=== PATIENT | male | born 1950 | race Caucasian/White ===

== ENCOUNTER 2019-03-30 14:18 | Emergency (ER) | payer MEDICARE, OTHER ==
[2019-03-30 15:11] LABS: BASOPHILS # (AUTO) 0.1 10^3/uL (0.0-0.1); BASOPHILS % (AUTO) 0.7 %; EOSINOPHILS # (AUTO) 0.2 10^3/uL (0.0-0.7); EOSINOPHILS % (AUTO) 2.2 %; LYMPHOCYTES # (AUTO) 1.1 10^3/uL (1.5-3.5); LYMPHOCYTES % (AUTO) 12.1 %; MEAN CORPUSCULAR HEMOGLOBIN 29.5 pg (27.0-31.0); MEAN CORPUSCULAR HGB CONC 33.7 g/dL (32.0-36.0); MEAN CORPUSCULAR VOLUME 87.4 fL (80.0-94.0); MEAN PLATELET VOLUME 7.4 fL (7.4-11.4); MONOCYTES # (AUTO) 1.3 10^3/uL (0.0-1.0); MONOCYTES % (AUTO) 14.8 %; NEUTROPHILS # (AUTO) 6.1 10^3/uL (1.5-6.6); NEUTROPHILS % (AUTO) 70.2 %; PLT - PLATELET COUNT 305 10^3/uL (130-450); RED BLOOD COUNT 4.42 10^6/uL (4.70-6.10); WHITE BLOOD COUNT 8.7 x10^3/uL (4.8-10.8)
--- NOTE | 2019-03-30 15:11 | XRAY Report ---
Reason: pain Procedure Date: 03/30/2019 Accession Number: [id number] / [id number] Procedure: XR - Chest 2 View X-Ray CPT Code: 34618 FULL RESULT: EXAM: CHEST RADIOGRAPHY EXAM DATE: 03/30/2019 02:51 PM. CLINICAL HISTORY: Chest pain. Shortness of breath. COMPARISON: None available. TECHNIQUE: 2 views. FINDINGS: Heart size is normal. Calcified plaques in the thoracic aorta. No consolidation, pleural effusion, or pneumothorax. IMPRESSION: No acute cardiopulmonary findings. [facility]
[2019-03-30 15:24] LABS: ALBUMIN 4.1 g/dL (3.2-5.5); ALBUMIN/GLOBULIN RATIO 1.5 (1.0-2.2); BILIRUBIN,TOTAL 1.4 mg/dL (0.2-1.0); CALCIUM 9.3 mg/dL (8.5-10.3); CREATININE 0.8 mg/dL (0.6-1.2); TOTAL PROTEIN 6.9 g/dL (6.7-8.2)
--- NOTE | 2019-03-30 18:23 | ED Physician Documentation ---
PD HPI DYSPNEA - Stated complaint Stated Complaint: SOA - Chief complaint Chief Complaint: Cardiac - History obtained from History obtained from: Patient - History of Present Illness Timing - onset: How many weeks ago (has noted dyspnea on exertion for month or two. The past few days has noted some jaw/upper chest discomfort when he bends over or lying flat. Has also noted thigh cramping and leg weakness for several weeks, and saw PMD about that recently, with abd U/s done to eval vascular.) Timing - onset during: Exertion (feels fatigue and dyspnea with activity. Just few days or so of chest/jaw tightness, but not exertional, more positional. No pain with eating.) Timing - duration: Weeks Timing - details: Gradual onset, Waxing and waning Inciting event(s): No: URI Improved by: Rest, Sitting up Worsened by: Laying flat, Other (bending over, feels discomfort into jaw/upper chest area.) Associated symptoms: Chest pain / discomfort (tightness feeling.). No: Fever, Cough, Wheezing Similar symptoms before: No diagnosis (has had some dyspnea and chest discomfort in the past, with normal nuclear stress test about 5-6 years ago, estimated by him/.) Recently seen: Clinic (discussed leg weakness and cramps with PMD, who did abd U/S to evaluate for AAA/vascular, and this was normal, per patient.) Review of Systems Constitutional: reports: Myalgias (in legs/thighs mostly), Fatigue. denies: Fever, Chills Nose: denies: Rhinorrhea / runny nose, Congestion Throat: denies: Sore throat Cardiac: denies: Palpitations, Pedal edema, Calf pain Respiratory: reports: Dyspnea. denies: Cough, Wheezing GI: denies: Abdominal Pain, Nausea, Vomiting, Constipation, Bloody / black stool Skin: denies: Rash, Lesions Musculoskeletal: denies: Extremity swelling Neurologic: denies: Numbness, Near syncope, Altered mental status, Headache PD PAST MEDICAL HISTORY - Past Medical History Past Medical History: Yes Cardiovascular: High cholesterol Neuro: Tremors Psych: Post traumatic stress disorder - Past Surgical History Past Surgical History: Yes - Allergies Allergies/Adverse Reactions: Allergies Allergy/AdvReac Type Severity Reaction Status Date / Time amoxicillin Allergy Anaphylaxis Verified 03/30/19 19:16 doxycycline Allergy Anaphylaxis Verified 03/30/19 19:16 - Social History Does the pt smoke?: Yes Smoking Status: Former smoker Does the pt drink ETOH?: Yes - Immunizations Immunizations are current?: Yes PD ED PE NORMAL - Vitals Vital signs reviewed: Yes - General General: Alert and oriented X 3, No acute distress, Well developed/nourished - HEENT HEENT: Pharynx benign - Neck Neck: Supple, no meningeal sign, No adenopathy - Cardiac Cardiac: RRR, No murmur - Respiratory Respiratory: Clear bilaterally - Abdomen Abdomen: Normal bowel sounds, Soft, Non tender, Non distended - Derm Derm: Normal color, Warm and dry, No rash - Extremities Extremities: No tenderness to palpate, Normal ROM s pain, No edema, No calf tenderness / cord - Neuro Neuro: Alert and oriented X 3, No motor deficit, Normal speech Eye Opening: Spontaneous Motor: Obeys Commands Verbal: Oriented GCS Score: 15 Results - Vitals Vitals: Vital Signs - 24 hr 03/30/19 03/30/19 03/30/19 14:31 17:30 19:00 Temperature 36.3 C L Heart Rate 66 70 69 Respiratory 18 20 21 Rate Blood Pressure 136/74 H 138/78 H 144/85 H O2 Saturation 100 99 99 03/30/19 03/30/19 19:30 20:24 Temperature Heart Rate 68 73 Respiratory 17 20 Rate Blood Pressure 147/77 H 157/84 H O2 Saturation 100 100 Oxygen O2 Source Room air - EKG (time done) 14:32 Rate: Rate (enter#) (68) Rhythm: NSR [place]: Normal Intervals: Normal ID QRS: Normal Ischemia: Normal ST segments. No: ST elevation c/w ischemia, ST depression - Labs Labs: Laboratory Tests 03/30/19 03/30/19 03/30/19 15:00 15:00 15:00 WBC 8.7 RBC 4.42 L Hgb 13.0 L Hct 38.6 L MCV 87.4 MCH 29.5 MCHC 33.7 RDW 14.0 Plt Count 305 MPV 7.4 Neut # (Auto) 6.1 Lymph # (Auto) 1.1 L [place] # (Auto) 1.3 H Eos # (Auto) 0.2 Baso # (Auto) 0.1 Absolute Nucleated RBC 0.00 Nucleated RBC % 0.0 Sodium 142 Potassium 4.3 Chloride 107 Carbon Dioxide 26 Anion Gap 9.0 BUN 15 Creatinine 0.8 Estimated GFR (MDRD) 96 Glucose 96 Calcium 9.3 Total Bilirubin 1.4 H AST 17 ALT 16 Alkaline Phosphatase 74 Troponin I < 0.04 Total Protein 6.9 Albumin 4.1 Globulin 2.8 Albumin/Globulin Ratio 1.5 Lipase 37 - Rads (name of study) chest xray Radiology: Prelim report reviewed (no acute process), EMP read contemporaneously, See rad report PD MEDICAL DECISION MAKING - ED course Complexity details: reviewed results, re-evaluated patient (consider anginal equivalent and discussed following up with PMD for consideration stress testing. He says it has been 5-6 years maybe since prior stress test, which was normal. Regarding his leg cramps/weakness, we verbally discussed stopping the statins for a month to see if that improves the symptoms. ), considered differential (consdier angina, reflux, lung process, OR. For legs, consider effect of statins. ), d/w patient Departure - Departure Disposition: 01 Home, Self Care Clinical Impression: Dyspnea Qualifiers: Dyspnea type: dyspnea on exertion Qualified Code(s): R06.09 - Other forms of dyspnea Chest pain Qualifiers: Chest pain type: unspecified Qualified Code(s): R07.9 - Chest pain, unspecified Condition: Stable Record reviewed to determine appropriate education?: Yes Instructions: ED Dyspnea Shortness of Breath Follow-Up: Rj Tee MD [Primary Care Provider] - Comments: Stay well-hydrated. Continue your Pepcid once or twice daily for the next week or 2. Some of this sounds like esophagitis. You could use some Maalox or Mylanta as well. Tylenol if needed for pains. There is no signs of heart attack or heart failure or pneumonia based on your EKG and x-ray. Follow-up with your primary care however as the shortness of breath that you have had over time could represent some heart disease and would be fully excluded with like a stress test or such. That would have to be arranged through your primary care. (Added after discharge: we verbally discussed stopping the statin med for a month, to see if that would help his recent thigh muscle cramps and feeling of leg weakness). Discharge Date/Time: 03/30/19 20:32
[2019-03-30] MEDS ORDERED: LIDOCAINE VISCOUS 2% 15 ML UDC MM STA (18:57)
[2019-03-30] MEDS ORDERED: MAG HYDROX/AL HYDROX/SIMETH 30 ML UDC PO STA (18:57)
[2019-03-30] MEDS ORDERED: ACETAMINOPHEN 325 MG TABLET PO STA (20:23)
[2019-03-30] MEDS ORDERED: traMADol 50 MG TABLET PO STA (20:23)
[2019-03-30 20:24] VITALS: BP 157/84
== END 2019-03-30 20:32 | disposition home or self-care (01) ==
LOC: ED 14:18
DX: R07.9 Chest pain, unspecified (principal); R06.09 Other forms of dyspnea; R25.2 Cramp and spasm; R29.898 Other symptoms and signs involving the musculoskeletal system; M79.18 Myalgia, other site; Z87.891 Personal history of nicotine dependence
CPT/HCPCS: 36415; 71046; 80053; 83690; 84484; 85025; 93005; 99283; 99284; A9270

== ENCOUNTER 2019-05-10 09:37 | Outpatient (CLI) | payer MEDICARE, OTHER ==
[2019-05-10] MEDS ORDERED: IOVERSOL 320 100 ML VIAL IVP ONE (10:18)
--- NOTE | 2019-05-11 06:08 | CT Report ---
Reason: CHEST PAIN, SOBOE, PLEURAL EFFUSION, LEFT Procedure Date: 05/10/2019 Accession Number: [id number] / [id number] Procedure: CT - CHEST W CPT Code: FULL RESULT: EXAM: CT CHEST EXAM DATE: 05/10/2019 10:34 AM. CLINICAL HISTORY: Chest pain, shortness of breath, left-sided pleural effusion. Abnormal chest x-ray on the prior exam, further assessment and characterization. COMPARISONS: CHEST 2 VIEW 03/30/2019 2:47 PM. TECHNIQUE: Routine helical CT imaging was performed through the chest. IV contrast: 80 mL Optiray 320. Reconstructions: Coronal and sagittal. In accordance with CT protocol optimization, one or more of the following dose reduction techniques were utilized for this exam: automated exposure control, adjustment of mA and/or KV based on patient size, or use of iterative reconstructive technique. FINDINGS: Lungs and Pleura: Small to medium left-sided pleural effusion is present. There is associated consolidation within the left lower lobe, with appearance suggestive of compressive atelectasis. Concurrent other airspace disease within the left lower lobe difficult to exclude with certainty. There is no evidence of a pneumothorax. Central Airways: Visualized central airways are without suspicious filling defects. Chest Wall: No significant abnormality. Thyroid: No significant abnormality. Mediastinum: No significant abnormality. Heart: Normal in size. Small pericardial effusion is noted. Aorta: Normal caliber. Upper Abdomen: No significant abnormality. Bones: No suspicious bony lesions evident. IMPRESSION: 1. Small left-sided pleural effusion, freely layering. Associated left basilar airspace disease, probably compressive atelectasis. Aspiration and/or concurrent small focus of infection difficult to exclude with certainty. 2. Right lung is without consolidation. 3. Small pericardial effusion is noted. [facility]
== END 2019-05-10 09:38 | disposition home or self-care (01) ==
LOC: DI 09:37
PROVIDERS: ATTEND Internal Medicine
DX: J18.1 Lobar pneumonia, unspecified organism (principal); J90 Pleural effusion, not elsewhere classified; I31.3 Pericardial effusion (noninflammatory)
CPT/HCPCS: 71260; Q9967

== ENCOUNTER 2019-07-09 11:29 | Day surgery (SDC) | payer MEDICARE, OTHER ==
[2019-07-09] MEDS ORDERED: fentaNYL 250 MCG/5 ML VIAL IVP ONE (11:30)
[2019-07-09] MEDS ORDERED: MIDAZOLAM 2 MG/2 ML VIAL IVP ONE (11:30)
[2019-07-09] MEDS ORDERED: LACTATED RINGERS 1,000 ML IV ONE (11:33)
[2019-07-09 13:53] VITALS: BP 134/81
== END 2019-07-09 11:30 | disposition home or self-care (01) ==
LOC: SDS 11:29
PROVIDERS: ATTEND Internal Medicine
PROC: 0DBM8ZZ Excision of Descending Colon, Via Natural or Artificial Opening Endoscopic (ICD-10-PCS; principal; 2019-07-09 12:30)
DX: Z12.11 Encounter for screening for malignant neoplasm of colon (principal); K63.5 Polyp of colon; K57.30 Diverticulosis of large intestine without perforation or abscess without bleeding; K64.0 First degree hemorrhoids; Z83.71 Family history of colonic polyps
CPT/HCPCS: 45385; J3010; J7120